=== PATIENT | female | born 1985 | race Caucasian/White ===

== ENCOUNTER 2019-09-08 18:37 | Emergency (ER) | payer BC, SELFPAY ==
--- NOTE | ~2019-09-08 | XR_ITS ---
EXAMINATION: XR ankle LT min 3V DATE: 09/08/2019 19:20 INDICATION: Left ankle pain TECHNIQUE: Anteroposterior, lateral, mortise, and additional oblique view of the ankle were obtained. COMPARISON: 11/23/2012 FINDINGS: There is no fracture, dislocation, or subluxation. The bones, soft tissues, and joint space s are normal. IMPRESSION: 1. No acute osseous abnormality. Reviewed, dictated and finalized at location A.
[2019-09-08 18:40] VITALS: BP 129/64; PULSE 85; RESP 16; TEMP 36.6; O2SAT 99
--- NOTE | 2019-09-08 19:13 | ED.LOWEXIN ---
HPI - Extremity Injury (Lower) General Chief Complaint: Extremity Injury, Lower Stated Complaint: Left Ankle Pain Time Seen by Provider: 09/08/19 19:01 History of Present Illness HPI Narrative: Patient is a 33-year-old female who presents the ER with left lateral ankle pain. Patient was sitting in a chair and went to stand up when her ankle rolled inward. She felt a pop and had swelling immediately. She has been unable to bear weight without significant pain. No numbness or tingling. No deformity. Has not taken any pain medication. Better with rest. Related Data Home Medications Medication Instructions Recorded Confirmed cholecalciferol (vitamin D3) 25 1,000 unit PO DAILY 06/20/19 mcg (1,000 unit) capsule multivitamin 1 tablet PO DAILY 06/20/19 Allergies Allergy/AdvReac Type Severity Reaction Status Date / Time adhesive Allergy Intermediate Rash Verified 09/08/19 18:44 NSAIDS (Non-Steroidal Allergy Unknown Other Verified 09/08/19 18:44 Anti-Inflamma banana AdvReac Intermediate discomfort Verified 09/08/19 18:44 Review of Systems Constitutional: Constitutional: Denies fever(s) and Denies weakness Musculoskeletal: Musculoskeletal: Reports arthralgias, Reports joint swelling and Denies muscle cramps Neurologic: Denies focal weakness and Denies numbness PMFSH Social History Social History Smoking status: Never smoker Second hand tobacco smoke exposure: No Alcohol intake: current Substance use: never Substance use type: does not use Gender identity (if verbalized by the patient): Female Exam Narrative: Exam Narrative: GENERAL: Well-appearing, well-nourished, and in no acute distress. HEAD: Normocephalic, atraumatic. EXTREMITIES: Focused exam of the left lower extremity reveals normal range of motion of the left ankle and knee. There is swelling over the lateral malleolus and the ATFL. Tender palpation over the lateral malleolus as well. No tenderness to the fifth metatarsal. No additional tenderness up into the knee. Normal dorsalis pedis pulse. SKIN: Warm, dry, no rash. NEURO: No focal deficits. Alert and oriented x3. PSYCH: Normal mood and affect. Course Course Emergency Course: Informed of results. Patient has her own AYE wrap and declines crutches. RICE therapy at home. Vital Signs Vital signs: Vital Signs Temperature 97.8 F 09/08/19 18:40 Pulse Rate 85 09/08/19 18:40 Respiratory Rate 16 09/08/19 18:40 Blood Pressure 129/64 09/08/19 18:40 Pulse Oximetry 99 09/08/19 18:40 Temperature 97.8 F 09/08/19 18:40 Pulse Rate 85 09/08/19 18:40 Respiratory Rate 16 09/08/19 18:40 Blood Pressure 129/64 09/08/19 18:40 Pulse Oximetry 99 09/08/19 18:40 MDM - Extremity Injury (Lower) Imaging Data Radiologist's impression: ITS Impressions Ankle X-Ray 09/08/19 19:25 IMPRESSION: 1. No acute osseous abnormality. Discharge Plan Discharge Clinical Impression: Ankle sprain Patient Disposition: Home, Self-Care Condition: Stable Instructions: Ankle Sprain (ED), R.I.C.E. Treatment (ED) Additional Instructions: Return to the ER if you have lower extremity swelling, you have chest pain shortness of breath, you cannot keep down food or water, you have additional concerns. Prescriptions: No Action multivitamin Tablet 1 tablet PO DAILY RF: 0 cholecalciferol (vitamin D3) 25 mcg (1,000 unit) capsule 1,000 unit PO DAILY RF: 0 omeprazole 40 mg capsule,delayed release(DR/EC) 40 mg PO DAILY Qty: 90 RF: 3 Follow-up/Referrals: Dilip Tejeda MD [Primary Care Provider] - 1 Week
[2019-09-08 20:15] VITALS: BP 129/78; PULSE 72; RESP 16; TEMP 36.8; O2SAT 98
== END 2019-09-08 20:15 | disposition home or self-care (01) ==
PROVIDERS: Emergency Provider Emergency Medicine; PCP Family Medicine
DX: S93.402A Sprain of unspecified ligament of left ankle, initial encounter (principal); X50.9XXA Other and unspecified overexertion or strenuous movements or postures, initial encounter
CPT/HCPCS: 73610; 99283; A9270

== ENCOUNTER 2019-10-04 10:03 | Emergency (ER) | payer BC, SELFPAY ==
--- NOTE | ~2019-10-04 | XR_ITS ---
XR ankle RT min 3V 10/04/2019 10:39 Indication: Right lateral ankle pain Procedure: 4 views right ankle Comparison: 04/19/2011 Findings: There is an avulsion fracture distal tip of the fibula. Mild lateral soft tissue swelling. There are 2 screws transfixing the medial malleolus. Ankle mortise intact. There is a possible subtle osteochondral defect medial aspect of the talar dome. Impression: 1: Acute avulsion fracture distal tip of the fibula. 2: Possible osteochondral defect medial aspect of the talar dome. Reviewed, dictated and finalized at location A. Impression: 1: Acute avulsion fracture distal tip of the fibula. 2: Possible osteochondral defect medial aspect of the talar dome.
[2019-10-04 10:17] VITALS: BP 133/81; PULSE 92; RESP 18; TEMP 37.1; O2SAT 99
--- NOTE | 2019-10-04 11:59 | ED.GENADULT ---
HPI - General Adult General Chief complaint: Extremity Injury, Lower <LENY Goodson Last Filed: 10/04/19 12:08> Stated complaint: right ankle injury <LENY Goodson Last Filed: 10/04/19 12:08> Time Seen by Provider: 10/04/19 11:18 <LENY Goodson Last Filed: 10/04/19 12:08> Source: patient <LENY Goodson Last Filed: 10/04/19 12:08> Mode of arrival: ambulatory <LENY Goodson Last Filed: 10/04/19 12:08> Limitations: no limitations <LENY Goodson Last Filed: 10/04/19 12:08> History of Present Illness HPI narrative: Patient is a 33-year-old female who presents to emergency department for evaluation of right ankle injury that occurred while walking rolled the ankle awkwardly has since had bruising swelling and tenderness. Patient denies other injuries or complaints. Patient presents per private vehicle has not had anything for pain. Patient denies radicular symptoms or paresthesias sick contacts <LENY Goodson Last Filed: 10/04/19 12:08> Related Data Home medications: Home Medications Medication Instructions Recorded Confirmed cholecalciferol (vitamin D3) 25 1,000 unit PO DAILY 06/20/19 mcg (1,000 unit) capsule multivitamin 1 tablet PO DAILY 06/20/19 <LENY Goodson Last Filed: 10/04/19 12:08> Allergies/adverse reactions: Allergies Allergy/AdvReac Type Severity Reaction Status Date / Time adhesive Allergy Intermediate Rash Verified 10/04/19 10:21 NSAIDS (Non-Steroidal Allergy Unknown Other Verified 10/04/19 10:21 Anti-Inflamma banana AdvReac Intermediate discomfort Verified 10/04/19 10:21 <LENY Goodson Last Filed: 10/04/19 12:08> Review of Systems Review of Systems: All systems reviewed & are unremarkable except as noted in HPI and below <LENY Goodson Last Filed: 10/04/19 12:08> PMFSH Past Medical History Medical History: Medical History Eosinophilic esophagitis Obesity <Terrance Jefferson PA-C - Last Filed: 10/04/19 12:08> Surgical History Surgical History: Surgical History History of ankle surgery status R ankle reconstruction History of appendectomy History of section, classical x 2 <LENY Goodson Last Filed: 10/04/19 12:08> Family History Family History: Family History Father Hypertension Family history of diabetes mellitus in first degree relative Family history of heart disease in male family member before age 55 Mother Hypertension Family history of diabetes mellitus in first degree relative Family history of heart disease in male family member before age 55 Other Cerebrovascular accident Family history of allergic disorder Family history of elevated blood lipids Family history of malignant neoplasm <LENY Goodson Last Filed: 10/04/19 12:08> Social History Social History: Social History Smoking status: Never smoker Second hand tobacco smoke exposure: No Alcohol intake: current Substance use: never Substance use type: does not use Gender identity (if verbalized by the patient): Female <LENY Goodson Last Filed: 10/04/19 12:08> Exam Narrative: Exam Narrative: GENERAL: Well-appearing, well-nourished, and in no acute distress. HEAD: Normocephalic, atraumatic. EYES: PERRLA and EOMI. ENT: Nares clear, no rhinorrhea or epistaxis. Mucous membranes moist. EXTREMITIES: Swelling and tenderness throughout the ankle joint SKIN: Warm, dry, no rash. NEURO: No focal deficits. Alert and oriented x3. Neurovascularly intact. Capillary refill less than 2 seconds PSYCH: Normal mood and affect. <Terrance Jefferson PA-C - [place]
== END 2019-10-04 13:33 | disposition home or self-care (01) ==
PROVIDERS: Emergency Provider Emergency Medicine; PCP Family Medicine
DX: S82.831A Other fracture of upper and lower end of right fibula, initial encounter for closed fracture (principal); E66.9 Obesity, unspecified; Z68.39 Body mass index [BMI] 39.0-39.9, adult; K20.0 Eosinophilic esophagitis; Y93.01 Activity, walking, marching and hiking
CPT/HCPCS: 29515; 73610; 99284; A9270